=== PATIENT | female | born 1965 | race Caucasian/White ===

== ENCOUNTER 2018-02-02 14:38 | Emergency (ER) | payer OTHER ==
[~2018-02-02] VITALS: Ht 162.6 cm; Wt 56.7 kg
[~2018-02-02 14:38] MED LIST: COZAAR 50 MG TA50 M2 PO; TYLENOL325 MG PO; VITAMIN B COMP1 EACH PO
[2018-02-02 14:45] VITALS: BP 137/60
[2018-02-02] MEDS ORDERED: MELOXICAM7.5 MG PO (14:48)
[2018-02-02] MEDS ORDERED: CIPROFLOXIN HC2.5 M1 OPHTHALMIC (15:32)
== END 2018-02-02 15:40 | disposition home or self-care (01) ==
LOC: M.ERS 14:38
DX: S05.02XA Injury of conjunctiva and corneal abrasion without foreign body, left eye, initial encounter (principal); X58.XXXA Exposure to other specified factors, initial encounter; Y93.01 Activity, walking, marching and hiking; Y92.89 Other specified places as the place of occurrence of the external cause; Y99.8 Other external cause status